=== PATIENT | female | born 1950 | race Caucasian/White ===

== ENCOUNTER 2019-06-17 18:26 | Emergency (ER) | payer OTHER ==
[2019-06-17 18:34] VITALS: BP 156/63; PULSE 69; BMI 22.8
[2019-06-17] MEDS ORDERED: IBUPROFEN 400 MG TABLET (FP) PO ONE ×3 (18:52→18:58)
--- NOTE | 2019-06-17 19:00 | PDOC ---
History of Present Illness - General Chief Complaint: Pain Stated Complaint: ABDOMINAL PAIN, BOIL Time Seen by Provider: 06/17/19 18:48 History Source: Patient, Family (son and granduaghter translated ) Exam Limitations: No Limitations Past History - Travel Close contact w/someone who was outside of country & ill: No - Past Medical History Allergies/Adverse Reactions: Allergies Allergy/AdvReac Type Severity Reaction Status Date / Time No Known Allergies Allergy Verified 06/17/19 18:34 Home Medications: Ambulatory Orders Amlodipine Besylate [Norvasc] 10 mg PO DAILY 12/31/11 Glimepiride [Amaryl] 4 mg PO DAILY 12/31/11 Lisinopril/Hydrochlorothiazide [Lisinopril-Hctz 20-12.5 mg Tab] 1 each PO DAILY 12/31/11 Loratadine [Allergy] 10 mg PO DAILY 12/31/11 Saxagliptin HCl [Onglyza] 5 mg PO DAILY 12/31/11 Simvastatin 20 mg PO HS 12/31/11 metFORMIN HCL [Glucophage] 1,000 mg PO BID 12/31/11 Diphenhydramine HCl [Benadryl Capsule -] 25 mg PO Q6H PRN #28 capsule 01/24/14 Hydrocortisone 2.5% Lotion [Hytone 2.5% Lotion -] 1 applic TP BID #1 bottle NS 01/24/14 Ranitidine [Zantac -] 150 mg PO DAILY #7 tablet 01/24/14 Ondansetron HCl [Zofran] 4 mg PO TID #12 tablet 08/02/14 Pantoprazole Sodium [Protonix] 40 mg PO DAILY #7 tablet. 08/02/14 Ibuprofen 600 mg PO ACDIN 7 Days #30 tablet 06/17/19 Lidocaine 5% Patch [Lidoderm Patch -] 1 patch TP DAILY #7 patch 06/17/19 Valacyclovir HCl [Valtrex -] 1,000 mg PO TID 7 Days #21 tablet 06/17/19 COPD: No Diabetes: Yes HTN: Yes - Psycho Social/Smoking Cessation Hx Smoking Status: No Smoking History: Never smoked Number of Cigarettes Smoked Daily: 0 If you are a former smoker, when did you quit?: 24 Hx Alcohol Use: No Drug/Substance Use Hx: No Review of Systems - Review of Systems Constitutional: No: Chills, Fever ABD/GI: No: Abdominal Distended, Nausea, Vomiting Integumentary: Yes: Rash. No: Pruritus *Physical Exam - Vital Signs Last Vital Signs Temp Pulse Resp BP Pulse Ox 69 18 156/63 99 06/17/19 18:30 06/17/19 18:30 06/17/19 18:30 06/17/19 18:30 - Physical Exam General Appearance: Yes: Nourished Respiratory/Chest: positive: Lungs Clear, Normal Breath Sounds Cardiovascular: positive: Regular Rhythm, Regular Rate, S1, S2 Integumentary: positive: Other (cluster of vesicular rash along left mid abd going to back, no warmth) Neurologic: positive: leather scrubber II-XII NML intact, Fully Oriented, Normal Mood/Affect , Normal Response, Motor Strength 5/5 Medical Decision Making - Medical Decision Making 06/17/19 19:32 68 years old female presents with painful rash on the left side of her abdomen extending to her her back for 2 weeks. Patient present reports she initially presented to the ER in the ER with abdominal pain on the left side she reports a rash erupted a few days after visit. Work-up included an x-ray in the ER which was okay. Physical examination is consistent with vesicular rash along the left side of abdomen extending to the back. It is tender to touch there is no erythema or warmth. Treat patient for zoster Discharge - Discharge Information Problems reviewed: Yes Clinical Impression/Diagnosis: Herpes zoster Qualifiers: Herpes zoster complications: without complications Qualified Code(s): B02.9 - Zoster without complications Condition: Stable Disposition: HOME - Admission No - Additional Discharge Information Prescriptions: Ibuprofen 600 mg PO ACDIN 7 Days #30 tablet Lidocaine 5% Patch [Lidoderm Patch -] 1 patch TP DAILY #7 patch Valacyclovir HCl [Valtrex -] 1,000 mg PO TID 7 Days #21 tablet Prescription Drug Monitoring Program (I-STOP) results: I-STOP not reviewed - Follow up/Referral - Patient Discharge Instructions Patient Printed Discharge Instructions: DI for Shingles Additional Instructions: You have shingles. Take medication as prescribed. Follow-up with your primary care doctor. Return to the emergency room if worsening symptoms occur - Post Discharge Activity
== END 2019-06-17 19:11 | disposition home or self-care (01) ==
LOC: JERFT 18:26
DX: B02.9 Zoster without complications (principal); I10 Essential (primary) hypertension; E11.9 Type 2 diabetes mellitus without complications; Z79.84 Long term (current) use of oral hypoglycemic drugs
CPT/HCPCS: 99281-25

== ENCOUNTER 2020-08-19 06:54 | Emergency (ER) | payer OTHER ==
[2020-08-19 07:05] VITALS: BP 144/87; PULSE 83; TEMP 100; BMI 25.7
[2020-08-19] MEDS ORDERED: LACTATED RINGERS SOLUTION 1000 ML INFUS.BAG IV ONE (07:55)
[2020-08-19] MEDS ORDERED: ACETAMINOPHEN 1000 MG/100 ML VIAL (NON FORMULARY) IVPB ONE (07:55)
[2020-08-19] MEDS ORDERED: ONDANSETRON 4 MG/2 ML VIAL IVPUSH ONE (07:55)
[2020-08-19] MEDS ORDERED: ACETAMINOPHEN 500 MG TABLET (FP) PO ONE (08:03)
[2020-08-19] MEDS ORDERED: diphenhydrAMINE HCL 50 MG CAPSULE PO ONE (08:03)
[2020-08-19] MEDS ORDERED: ACETAMINOPHEN 325 MG TABLET (FP) ONE (08:05)
[2020-08-19] MEDS ORDERED: diphenhydrAMINE HCL 25 MG CAPSULE (FP) PO ONE (08:05)
== END 2020-08-19 11:20 | disposition home or self-care (01) ==
LOC: JER 06:54
PROC: 3E0333Z Introduction of Anti-inflammatory into Peripheral Vein, Percutaneous Approach (ICD-10-PCS; principal; 2020-08-19)
PROC: 3E033GC Introduction of Other Therapeutic Substance into Peripheral Vein, Percutaneous Approach (ICD-10-PCS; 2020-08-19)
DX: L50.9 Urticaria, unspecified (principal); M79.10 Myalgia, unspecified site
CPT/HCPCS: 99284-25